=== PATIENT | female | born 1995 | race African-American/Black ===

== ENCOUNTER 2019-07-04 21:41 | Emergency (ER) | payer SELFPAY ==
--- NOTE | ~2019-07-04 | CT_ITS ---
EXAMINATION: CT brain wo con DATE: 07/04/2019 22:34 INDICATION: Frontal headache. Dizziness. TECHNIQUE: Computed tomography (CT) of the head was performed without intravenous contrast. The mA wa s adjusted according to patient size. Iterative reconstruction technique was employed. Exam dose: 68 1.00 mGy-cm total exam DLP. COMPARISON: None FINDINGS: No intracranial mass lesion or hemorrhage or cerebrovascular accident. No midline shift or mass effect. Normal ventricular size. Normal méndez-white matter differentiation. The orbital contents appear normal. No subdural or epidural hematoma. There is a fluid level in the posterior left ethmoid region. Included paranasal sinuses are otherwise unremarkable. The maxillary sinuses are not included in this examination. Mastoid air cells are norm ally developed and aerated. No fracture or bone destruction of the cranial vault. IMPRESSION: Air-fluid level in posterior left ethmoid area No significant intracranial abnormality Reviewed, dictated and finalized at [facility]. Reviewed, dictated and finalized at [facility].
[2019-07-04 21:45] VITALS: BP 124/74; PULSE 80; RESP 20; TEMP 36.4; O2SAT 100
--- NOTE | 2019-07-04 22:06 | ED.HA ---
HPI - Headache General Chief Complaint: Headache Stated Complaint: ADHIKARI x 6 days Time Seen by Provider: 07/04/19 22:01 Source: patient and RN notes reviewed Mode of arrival: ambulatory Limitations: no limitations History of Present Illness HPI Narrative: A 24 y/o female presents to the ED with a constant dull, pressure, generalized ADHIKARI for the past 6 days. She states that she always feels a constant dull pressure but that occasionally it becomes sharp. She reports associated photophobia, neck pain, dizziness, and nausea. She notes that moving her head aggravtes her symptoms. She also notes that she has taken sinus decongestant, Ibuprofen, Vicks, a humidifier, and hydration but denies anything alleviating her symptmos. She also denies any visional changes, ear ache, runny nose, cough, sore throat, body aches, fevers, chills, sweats, or vomiting. MD elicited complaint: headache Onset (ago): day(s) (6) Location: generalized Quality & Timing: sharp (occasionally), dull, constant and pressure Exacerbating factors: movement of head/neck and light Relieving factors: nothing Associated symptoms: nausea, photophobia and other (neck pain and dizziness) Treatments prior to arrival: ibuprofen and other (sinus decongestant, Vicks, a humidifier, and hydration) Related Data Allergies Allergy/AdvReac Type Severity Reaction Status Date / Time amoxicillin Allergy Unknown Verified 02/18/17 18:28 metronidazole Allergy Unknown Verified 02/18/17 18:28 Review of Systems Constitutional: Constitutional: Denies body ache(s), Denies chills, Denies fever(s) and Denies other (sweats) Eyes: Eyes: Denies change in vision and Reports photophobia ENT: Denies otalgia, Denies nasal discharge and Denies sore throat Respiratory: Respiratory: Denies cough Gastrointestinal: Gastrointestinal: Reports nausea and Denies vomiting Musculoskeletal: Musculoskeletal: Reports neck pain Neurologic: Reports dizziness and Reports headache(s) (generalized) FOR[facility]LY [facility] Past Medical History Medical History (Updated 07/04/19 @ 23:40 by Cheri Bond MD) Anemia Surgical History Surgical History (Updated 07/04/19 @ 22:20 by Jean Kyle) History of wisdom tooth extraction Social History Social History (Updated 03/14/20 @ 22:20 by Jean Kyle) Smoking status: Never smoker Exam Const: General: cooperative, no acute distress and alert Nutritional Appearance: well nourished Orientation/consciousness: patient oriented x3 Limitations: no limitations HENMT: Mouth: Yes lip normal and Yes moist mucous membranes Resp: Effort & Inspection: normal respiratory effort Auscultation: clear to auscultation bilaterally Cardio: Rate: regular rate Rhythm: regular rhythm GI: GI Palp: Yes Soft to palpation and No Tenderness to palpation present (GI) Auscultation: normal bowel sounds Skin: General skin exam: normal color Neuro: General: patient oriented x3 Cognition (Neuro): normal cognition Speech: normal speech Extrem: General: normal to inspection, full ROM and no clubbing, cyanosis or edema Psych: Mental Status: mental status grossly normal Affect: normal affect Attitude: cooperative Course Course Emergency Course: Patient headache better after medications. CT scan unremarkable for abnormalities. Advised follow-up with primary care physician, especially if she has recurrent headache. Could represent tension or migraine headache, but given she does not have significant history of either, may require further investigation if she has recurrent symptomatology. Vital Signs Vital signs: Vital Signs Temperature 97.5 F L 07/04/19 21:45 Pulse Rate 80 07/04/19 21:45 Respiratory Rate 20 07/04/19 21:45 Blood Pressure 124/74 07/04/19 21:45 Pulse Oximetry 100 07/04/19 21:45 Temperature 97.5 F L 07/04/19 21:45 Pulse Rate 80 07/04/19 21:45 Respiratory Rate 20 07/04/19 21:45 Blood Pressure 124/74 07/04/19 21:45 Pulse Oximetry 100 07/04/19
[2019-07-04] MEDS: METOCLOPRAMIDE HCL INJ 10 MG/2 ML VIAL IV PUSH (22:44)
[2019-07-04] MEDS: KETOROLAC 30 MG/ML VIAL (*BKC) IV PUSH (22:44)
[2019-07-04 23:43] VITALS: BP 124/72; PULSE 78; RESP 16; O2SAT 99
== END 2019-07-04 23:46 | disposition home or self-care (01) ==
PROVIDERS: Emergency Provider Emergency Medicine
DX: R51 Headache (principal); Z86.2 Personal history of diseases of the blood and blood-forming organs and certain disorders involving the immune mechanism
CPT/HCPCS: 70450; 96374; 96375; 99284; J1200; J1885; J2765